=== PATIENT | female | born 1995 | race Caucasian/White ===

== ENCOUNTER 2019-12-23 12:52 | Outpatient (CLI) | payer BC, OTHER | END 2019-12-23 12:53 | disposition home or self-care (01) | LOC: COV 12:52 | PROVIDERS: ATTEND Family Medicine | DX: Z20.828 Contact with and (suspected) exposure to other viral communicable diseases (principal) ==

== ENCOUNTER 2022-03-31 08:00 | Outpatient (CLI) | payer BC ==
--- NOTE | 2022-03-31 12:34 | XRAY Report ---
PROCEDURE: Chest 2 View X-Ray INDICATIONS: COUGH AND CONGESTION TECHNIQUE: 2 views of the chest were acquired. COMPARISON: None. FINDINGS: Surgical changes and devices: None. Lungs and pleura: No pleural effusions or pneumothorax. Lungs are clear. Mediastinum: Mediastinal contours are normal. Heart size is normal. Bones and chest wall: No suspicious bony abnormalities. Soft tissues appear unremarkable. IMPRESSION: No acute cardiopulmonary pathology. Reviewed by: Shahzad Arriola MD on 03/31/2022 12:33 PM [facility] Approved by: Shahzad Arriola MD on 03/31/2022 12:33 PM [facility] Station ID: [id number]
== END 2022-03-31 23:59 | disposition home or self-care (01) ==
LOC: DI.S 08:00
PROVIDERS: ATTEND Physician Assistant Medical
DX: R09.89 Other specified symptoms and signs involving the circulatory and respiratory systems (principal); R05.1 Acute cough